=== PATIENT | male | born 1930 | race Caucasian/White ===

== ENCOUNTER 2018-08-10 05:06 | Inpatient (IN) | payer MEDICARE, OTHER, SELFPAY ==
[~2018-08-10] VITALS: Ht 175.3 cm; Wt 75.3 kg
[2018-08-10] MEDS ORDERED: ADENOSINE 6 MG/2 ML ONE ×2 (05:14→05:26)
--- NOTE | 2018-08-10 05:20 | NUR ---
BIBGwen. PT C/O SOB WITH SVT SINCE 2 AM. WHEEZING NOTED BY EMS. PT IS HEAVY SMOKER(2PACKS OF A DAY). PT WENT TO [facility] FOR THE SAME REASON YESTERDAY. PT'S AOX4. RESPS EVEN AND UNLABORED. POOR HISTORIAN. ALL MONITORS IN PLACE. CALL LIGHT WITHIN REACH. EDMD AT BEDSIDE TO ASSESS.
[2018-08-10] MEDS ORDERED: ASPIRIN 81 MG TABLET CHEW PO ONE (05:30)
[2018-08-10] MEDS ORDERED: ADENOSINE 6 MG/2 ML IVPush ONE ×3 (05:30→06:00)
[2018-08-10] MEDS ORDERED: PLEASE ENTER ALLERGIES MC SCH (05:30)
--- NOTE | 2018-08-10 05:30 | NUR ---
PT MEDICATED PER EMAR. PT STILL HAS SVT. EDMD NOTIFIED.
[2018-08-10] MEDS ORDERED: ASPIRIN 81 MG TABLET CHEW ONE (05:39)
[2018-08-10] MEDS ORDERED: PROPOFOL 10 MG/ML, 20ML ONE (05:46)
[2018-08-10] MEDS ORDERED: PROPOFOL 10 MG/ML, 20ML IVP ONE (06:00)
[2018-08-10 06:03] LABS: BASOPHILS # (AUTO) 0.04 x10^3/uL (0-0.1); BASOPHILS % (AUTO) 0 % (0-1); EOSINOPHILS # (AUTO) 0.06 x10^3/uL (0-0.4); EOSINOPHILS % (AUTO) 0 % (1-7); LYMPHOCYTES # (AUTO) 0.98 x10^3/uL (1-3.4); LYMPHOCYTES % (AUTO) 7 % (22-44); MD NO; MEAN CORPUSCULAR HEMOGLOBIN 34.5 pg (27.5-34.5); MEAN CORPUSCULAR VOLUME 101.5 fL (81-97); MEAN PLATELET VOLUME 8.8 fL (7.4-10.4); MONOCYTES # (AUTO) 1.33 x10^3/uL (0.2-0.8); MONOCYTES % (AUTO) 10 % (2-9); NEUTROPHILS % (AUTO) 83 % (42-75); PLATELET COUNT 181 x10^3/uL (130-400); RED BLOOD COUNT 3.68 x10^6/uL (4.38-5.82); RED CELL DISTRIBUTION WIDTH 15.6 % (9.4-14.8)
--- NOTE | 2018-08-10 06:03 | NUR ---
CARDIOVERSION IS DONE BY . SEE PAPER CHARTING.
[2018-08-10] MEDS ORDERED: RIVA10TA2 PO ×2 (06:10→06:13)
[2018-08-10] MEDS ORDERED: METF500T27 PO (06:11)
[2018-08-10] MEDS ORDERED: METO25TA35 PO (06:12)
[2018-08-10] MEDS ORDERED: ATOR-2 PO (06:13)
[2018-08-10 06:14] LABS: ALBUMIN 3.5 g/dL (3.4-5.0); ANION GAP 6 mmol/L (5-15); CALCIUM 8.4 mg/dL (8.5-10.1); CHLORIDE 112 mmol/L (98-107)
[2018-08-10] MEDS ORDERED: RANI-448 PO (06:14)
[2018-08-10] MEDS ORDERED: CYAN1TAB5 PO (06:14)
[2018-08-10] MEDS ORDERED: DILT60CA PO (06:15)
[2018-08-10] MEDS ORDERED: TAMS-11 PO (06:15)
[2018-08-10] MEDS ORDERED: MAGN250T8 PO (06:15)
[2018-08-10] MEDS ORDERED: CYAN50TA PO (06:16)
[2018-08-10 06:19] LABS: CREATININE 0.89 mg/dL (0.7-1.3); TROPONIN I 0.044 ng/mL (0.000-0.045)
--- NOTE | 2018-08-10 06:19 | NUR ---
PT BACK TO BASELINE NOW.PT'S AOX4. RESPS EVEN AND UNLABORED. PT DENIES PAIN. NSR ON COMPLIANCE OFFICER RATE 70'S AT THIS TIME,
--- NOTE | 2018-08-10 06:47 | NUR ---
REPORT GIVEN TO YUE WHITAKER.
[2018-08-10] MEDS ORDERED: SODIUM CHLORIDE FLUSH 10ML SYR IVF PRN (07:00)
--- NOTE | 2018-08-10 07:07 | NUR ---
RECEIVED REPORT FROM RODRIGO.
--- NOTE | 2018-08-10 07:13 | NUR ---
PT SLEEPING AT THIS TIME.
--- NOTE | 2018-08-10 07:53 | NUR ---
CALLED AND GAVE REPORT TO SREEKANTH WHITAKER. PT WILL THEN BE TRANSFERRED TO FLOOR
--- NOTE | 2018-08-10 08:23 | NUR ---
PT WAS REFUSING TO STAY AND THEN MD AND I TALKED PT INTO STAYING FOR THE SAFETY AND HEALTH OF HIS HEART. PT AGREED ON STAYING.
[2018-08-10 09:00] VITALS: BP 116/76
[2018-08-10] MEDS ORDERED: LABETALOL 5MG/ML, 20ML IVPush PRN (11:30)
[2018-08-10] MEDS ORDERED: ACETAMINOPHEN 325 MG TABLET PO PRN (11:30)
[2018-08-10] MEDS: INSULIN LISPRO 100 UNITS/ML, PEN SQ-INSULIN SCH ×3 (12:01→21:06)
[2018-08-10] MEDS: NICOTINE 21 MG/24 HR PATCH.TD24 TD SCH (12:01)
[2018-08-10] MEDS: HEPARIN 5,000 UNITS/ML, 1ML SQ SCH ×2 (12:02→21:06)
[2018-08-10] MEDS: methylPREDNISolone SOD SUCC 125 MG/2 ML IVPush SCH ×3 (12:02→23:48)
[2018-08-10 12:33] LABS: TROPONIN I 0.291 ng/mL (0.000-0.045)
[2018-08-10 12:45] VITALS: BP 144/83
[2018-08-10 13:08] LABS: HEMOGLOBIN A1C 7.1 % (4.2-6.3)
[2018-08-10] MEDS: ALBUTEROL/IPRATROPIUM 2.5MG/0.5MG, 3 ML NPPB SCH ×2 (14:16→20:00)
[2018-08-10] MEDS ORDERED: ALBUTEROL/IPRATROPIUM 2.5MG/0.5MG, 3 ML NPPB SCH (15:00)
[2018-08-10 18:13] LABS: TROPONIN I 0.188 ng/mL (0.000-0.045)
[2018-08-10 20:02] LABS: MICROSCOPIC NOT IND
[2018-08-10 20:08] LABS: CULTURE INDICATED? NO
[2018-08-10] MEDS: CALCIUM CARBONATE 500 MG TAB.CHEW PO SCH (21:05)
[2018-08-10 21:14] VITALS: BP 135/70
[2018-08-11 00:06] VITALS: BP 130/74
[2018-08-11] MEDS: methylPREDNISolone SOD SUCC 125 MG/2 ML IVPush SCH (05:15)
[2018-08-11] MEDS: HEPARIN 5,000 UNITS/ML, 1ML SQ SCH ×2 (05:16→13:00)
[2018-08-11 05:48] LABS: BASOPHILS # (AUTO) 0.01 x10^3/uL (0-0.1); BASOPHILS % (AUTO) 0 % (0-1); EOSINOPHILS % (AUTO) 0 % (1-7); LYMPHOCYTES # (AUTO) 0.91 x10^3/uL (1-3.4); LYMPHOCYTES % (AUTO) 7 % (22-44); MD NO; MEAN CORPUSCULAR HEMOGLOBIN 34.6 pg (27.5-34.5); MEAN CORPUSCULAR HGB CONC 33.9 g/dL (33.2-36.2); MEAN CORPUSCULAR VOLUME 102.2 fL (81-97); MONOCYTES # (AUTO) 0.45 x10^3/uL (0.2-0.8); MONOCYTES % (AUTO) 4 % (2-9); NEUTROPHILS % (AUTO) 89 % (42-75); PLATELET COUNT 184 x10^3/uL (130-400); RED CELL DISTRIBUTION WIDTH 15.6 % (9.4-14.8)
[2018-08-11 05:56] LABS: ALBUMIN 3.6 g/dL (3.4-5.0); ANION GAP 7 mmol/L (5-15); CALCIUM 8.8 mg/dL (8.5-10.1); CHLORIDE 112 mmol/L (98-107); CREATININE 0.86 mg/dL (0.7-1.3)
[2018-08-11 06:01] LABS: ALANINE AMINOTRANSFERASE 29 U/L (12-78); ALKALINE PHOSPHATASE 78 U/L (45-117); BILIRUBIN,TOTAL 0.9 mg/dL (0.2-1.0); TOTAL PROTEIN 6.9 g/dL (6.4-8.2)
[2018-08-11] MEDS: ALBUTEROL/IPRATROPIUM 2.5MG/0.5MG, 3 ML NPPB SCH (07:00)
[2018-08-11 07:28] VITALS: BP 137/70
[2018-08-11] MEDS: INSULIN LISPRO 100 UNITS/ML, PEN SQ-INSULIN SCH ×2 (07:59→11:45)
[2018-08-11] MEDS: CALCIUM CARBONATE 500 MG TAB.CHEW PO SCH ×2 (07:59→08:01)
[2018-08-11] MEDS ORDERED: ALBUTEROL/IPRATROPIUM 2.5MG/0.5MG, 3 ML NPPB PRN (08:00)
[2018-08-11] MEDS ORDERED: CARVEDILOL 6.25 MG TABLET PO SCH (08:30)
[2018-08-11] MEDS ORDERED: ASPIRIN 81 MG TABLET CHEW PO SCH (09:00)
[2018-08-11] MEDS ORDERED: ALBU90AE INH (11:22)
[2018-08-11] MEDS ORDERED: TIOT18CA INH (11:22)
[2018-08-11] MEDS ORDERED: PRED20TA PO ×2 (11:22→14:49)
[2018-08-11] MEDS: NICOTINE 21 MG/24 HR PATCH.TD24 TD SCH (11:46)
== END 2018-08-11 13:38 | disposition home or self-care (01) | DRG 308 ==
LOC: ED 06:05 → EDIP 06:40 → 5SO 08:34 → DCLOUNGE 08-11 13:19
PROVIDERS: ADMIT Hospitalist; ATTEND Hospitalist
PROC: 5A2204Z Restoration of Cardiac Rhythm, Single (ICD-10-PCS; principal; 2018-08-10)
DX: I47.1 Supraventricular tachycardia (principal); I50.21 Acute systolic (congestive) heart failure; J44.1 Chronic obstructive pulmonary disease with (acute) exacerbation; N39.0 Urinary tract infection, site not specified; E87.2 Acidosis; D68.69 Other thrombophilia; Z66 Do not resuscitate; D50.9 Iron deficiency anemia, unspecified; D53.9 Nutritional anemia, unspecified; E11.9 Type 2 diabetes mellitus without complications; E83.51 Hypocalcemia; Z90.81 Acquired absence of spleen; Z87.891 Personal history of nicotine dependence
CPT/HCPCS: 36415; 71045; 80048; 80053; 81003; 82040; 82962; 83036; 83735; 83880; 84443; 84484; 85025; 92960; 93005; 93306; 94640; 96374; 99291; G0378; J0153; J1644; J7620; J1815; J2930; J7512